=== PATIENT | male | born 1960 | race African-American/Black ===

== ENCOUNTER 2024-10-01 07:40 | Day surgery (SDC) | payer MEDICARE, SELFPAY ==
[2024-09-30 14:33] VITALS: BMI 34.0
[2024-10-01] VITALS (9 sets, daily range): BP systolic 99–142; BP diastolic 65–82; PULSE 51–59; RESP 14–20; TEMP 36.1–36.8; O2SAT 93–97; BMI 31.7
[2024-10-01] MEDS: SODIUM CHLORIDE 0.9% 500 ML 500 ML 20 ML IV (09:44)
[2024-10-01] MEDS: MIDAZOLAM INJ 1 MG/ML VIAL 2 ML (ASD USE ONLY) 2 MG IVP (09:47)
[2024-10-01] MEDS: fentaNYL CIT INJ 50 mCg/ML AMP 2ML (ASD USE ONLY) IVP (09:47)
--- NOTE | 2024-10-01 10:36 | SUR.PHASEII ---
1030 Pt more awake and alert. Denies pain or N/V. Abbd remains soft. Paula po fluids.
--- NOTE | 2024-10-01 11:13 | SUR.PHASEII ---
1045 Pt assessment unchanged. No complaints. Amb with steady gait. assisting pt with getting dressed. DC instructions given. Both state understanding. pt meets dc criteria-to home.
== END 2024-10-01 10:45 | disposition home or self-care (01) ==
PROVIDERS: PCP Family Medicine; Referring Provider Specialist; Visit Provider Specialist
PROC: 0DBE8ZX Excision of Large Intestine, Via Natural or Artificial Opening Endoscopic, Diagnostic (ICD-10-PCS; CPT 45380; principal; 2024-10-01 09:00)
DX: Z12.11 Encounter for screening for malignant neoplasm of colon (principal); K64.9 Unspecified hemorrhoids; K57.30 Diverticulosis of large intestine without perforation or abscess without bleeding
CPT/HCPCS: G0121; J1200; J2250; J3010; J7999